=== PATIENT | female | born 1965 | race Caucasian/White ===

== ENCOUNTER → 2023-01-16 | Outpatient (CLI) | payer MEDICARE ==
--- NOTE | 2023-01-16 10:47 | Diagnostic Imaging Report ---
CLINICAL INDICATION: Patient with chronic low back pain. EXAM: MRI of the lumbar spine without contrast. Sequences include sagittal T2, sagittal T1, sagittal T2 fat-sat, and axial T2. COMPARISON: Outside MRI of the lumbar spine without contrast dated 05/25/2017 from [facility]. Images are loaded onto the PACS system. FINDINGS: There is no acute lumbar spine fracture or dislocation. There is a small intraosseous hemangioma with focal fatty infiltration involving the L1 vertebra. There are chronic Schmorl's node involving the upper lumbar spine and thoracolumbar region. The visualized portions of the distal thoracic spinal cord, conus medullaris, and cauda equina nerve roots are unremarkable. The conus medullaris tip is seen at the lower L1 vertebral body level. L1-L2: Unremarkable. L2-L3: Unremarkable. L3-L4: There is subtle grade 1 retrolisthesis of L3 on L4 which slightly progressed. There is mild bilateral facet arthropathy which is slightly progressed. There is no pars defect. There is no significant central canal or neural foramen narrowing. L4-L5: There is interval progression of diffuse disk bulge with a superimposed small right paracentral disk bulge. There is now moderate loss of disk space height. There is moderate bilateral facet arthropathy which is minimally progressed. There is minimal central canal narrowing. There is mild right neural foramen narrowing and no significant left neural foramen narrowing. L5-S1: There is interval development of a subtle posterior disk bulge with annular tear. There is mild bilateral facet arthropathy. There is no significant central canal or neural foramen narrowing. IMPRESSION: 1: There is no acute lumbar spine fracture. 2: There is slight progression of lumbar spine with degenerative disease which is described above. Dictated by: Dictated on workstation # [id number]
== END ==
LOC: RAD 09:25
PROVIDERS: ATTEND Family Medicine
DX: M47.816 Spondylosis without myelopathy or radiculopathy, lumbar region (principal); M43.16 Spondylolisthesis, lumbar region; M51.26 Other intervertebral disc displacement, lumbar region; M48.061 Spinal stenosis, lumbar region without neurogenic claudication; M47.817 Spondylosis without myelopathy or radiculopathy, lumbosacral region; M51.37 Other intervertebral disc degeneration, lumbosacral region
CPT/HCPCS: 72148

== ENCOUNTER → 2023-01-31 | Outpatient (CLI) | payer MEDICARE ==
--- NOTE | 2023-01-31 17:10 | Diagnostic Imaging Report ---
INDICATION: Screening bone density scan COMPARISON: None available FINDINGS: AP Spine L1-L4: [BMD (g/cm2): 1.189] [T-Score: -0.1] [Z-Score: 1.2] [BMD Previous: NA] [BMD % Change: NA] LT Hip Neck: [BMD (g/cm2): 0.802] [T-Score: -1.7] [Z-Score: -0.4] LT Hip Total: [BMD (g/cm2):0.866] [T-Score:-1.1] [Z-Score: 0.1] [BMD Previous: NA] [BMD % Change: NA] RT Hip Neck: [BMD (g/cm2):0.737] [T-Score:-2.2] [Z-Score:-0.9] RT Hip Total: [BMD (g/cm2):0.853] [T-score:-1.2] [Z-Score:-0.2] [BMD Previous:NA] [BMD % Change:NA] *Indicates significant change from prior examination based on 95% confidence level. World Health Organization criteria for BMD interpretation classify patients as Normal (T-score at or above -1.0), Osteopenic (T-score between -1.0 and -2.5) or Osteoporotic (T-score at or below -2.5). LIMITATIONS AND MODIFICATION: None. FRACTURE RISK (FRAX SCORE): The ten year probability of (%): Major Osteoporotic Fracture: [NA] Hip Fracture: [NA] IMPRESSION: 1. Osteopenia (Low bone mass). 2. Baseline examination. 3. See below National Osteoporosis Foundation guidelines on when to potentially initiate pharmacologic therapy. Based on the National Osteoporosis Foundation Guidelines, pharmacologic treatment should be initiated in any of the following, unless clinical conditions suggest otherwise: * Any patient with prior fragility fracture of the hip or vertebrae. A spine fracture indicates 5X risk for subsequent spine fracture and 2X risk for subsequent hip fracture. * Osteoporosis (T-score <-2.5). * Postmenopausal women and men age 50 and older with low bone mass/osteopenia (T-score between -1.0 and -2.5) by DXA and 10-year major osteoporotic fracture greater than 20% or a 10-year probability of hip fracture greater than 3%. These fracture risks are supplied above in the FRAX score, if applicable. * Clinician judgement and/or patient preferences may indicate treatment for people with 10-year fracture probabilities above or below these levels. Dictated by: Dictated on workstation # [id number]
== END ==
LOC: RAD 08:19
PROVIDERS: ATTEND Nurse Practitioner Family
DX: M85.80 Other specified disorders of bone density and structure, unspecified site (principal); Z78.0 Asymptomatic menopausal state
CPT/HCPCS: 77080

== ENCOUNTER → 2023-02-01 | Outpatient (CLI) | payer MEDICARE ==
[2023-02-01 06:34] LABS: BASOPHILS # (AUTO) 0.1 10^3/uL (0.0-0.1); BASOPHILS % (AUTO) 2 % (0-10); EOSINOPHILS # (AUTO) 0.1 10^3/uL (0.0-0.3); EOSINOPHILS % (AUTO) 2 % (0-10); HEMATOCRIT 40 % (35-52); HEMOGLOBIN 13.8 g/dL (11.5-16.0); LYMPHOCYTES # (AUTO) 2.5 10^3/uL (1.0-4.0); LYMPHOCYTES % (AUTO) 39 % (12-44); MEAN CORPUSCULAR HEMOGLOBIN 32 pg (25-34); MEAN CORPUSCULAR HGB CONC 35 g/dL (32-36); MEAN CORPUSCULAR VOLUME 92 fL (80-99); MEAN PLATELET VOLUME 12.3 fL (9.0-12.2); MONOCYTES # (AUTO) 0.5 10^3/uL (0.0-1.0); MONOCYTES % (AUTO) 7 % (0-12); NEUTROPHILS # (AUTO) 3.3 10^3/uL (1.8-7.8); NEUTROPHILS % (AUTO) 50 % (42-75); PLATELET COUNT 190 10^3/uL (130-400); WHITE BLOOD COUNT 6.5 10^3/uL (4.3-11.0)
[2023-02-01 06:50] LABS: POTASSIUM 4.1 MMOL/L (3.6-5.0)
[2023-02-01 06:52] LABS: CALCIUM 9.5 MG/DL (8.5-10.1)
[2023-02-01 06:53] LABS: TOTAL PROTEIN 7.1 GM/DL (6.4-8.2)
[2023-02-01 06:55] LABS: BILIRUBIN,TOTAL 0.5 MG/DL (0.1-1.0)
[2023-02-01 06:57] LABS: CREATININE SERUM 0.77 MG/DL (0.60-1.30)
== END ==
LOC: LAB 06:17
PROVIDERS: ATTEND Physician Assistant
DX: Z00.01 Encounter for general adult medical examination with abnormal findings (principal); G35 Multiple sclerosis; E55.9 Vitamin D deficiency, unspecified; F41.1 Generalized anxiety disorder; E53.8 Deficiency of other specified B group vitamins; Z82.3 Family history of stroke; Z82.49 Family history of ischemic heart disease and other diseases of the circulatory system
CPT/HCPCS: 36415; 80053; 80061; 82306; 82607; 84443; 85025

== ENCOUNTER 2023-02-03 09:11 | Outpatient (RCR) | payer MEDICARE | END 2023-02-20 | disposition home or self-care (01) | PROVIDERS: ATTEND Family Medicine | DX: G35 Multiple sclerosis (principal); M54.50 Low back pain, unspecified; M62.81 Muscle weakness (generalized) ==

== ENCOUNTER 2023-03-07 08:59 | Outpatient (RCR) | payer MEDICARE | END 2023-03-23 | disposition home or self-care (01) | PROVIDERS: ATTEND Family Medicine | DX: G35 Multiple sclerosis (principal); M54.50 Low back pain, unspecified; M62.81 Muscle weakness (generalized) ==

== ENCOUNTER → 2023-04-03 | Outpatient (CLI) | payer MEDICARE ==
--- NOTE | 2023-04-04 19:19 | Diagnostic Imaging Report ---
Indication: Routine screening. Comparison is made with prior mammogram 01/03/2022 and 12/23/2020. 2-D and 3-D bilateral screening mammography was performed with CAD. Both breasts are heterogeneously dense, limiting the sensitivity of mammography. No dominant mass or malignant-appearing microcalcifications are seen. Axillae are unremarkable. IMPRESSION: BI-RADS Category 1 No mammographic features suspicious for malignancy are identified. ACR BI-RADS Category 1: Negative. Result letter will be mailed to the patient. Note: At least 10% of breast cancer is not imaged by mammography. Dictated by: Dictated on workstation # [id number]
== END ==
LOC: RAD 09:26
PROVIDERS: ATTEND Physician Assistant
DX: Z12.31 Encounter for screening mammogram for malignant neoplasm of breast (principal)
CPT/HCPCS: 77063; 77067

== ENCOUNTER 2023-04-10 09:17 | Outpatient (RCR) | payer MEDICARE | END 2023-04-10 10:15 | disposition home or self-care (01) | PROVIDERS: ATTEND Family Medicine | DX: G35 Multiple sclerosis (principal); M54.50 Low back pain, unspecified; M62.81 Muscle weakness (generalized) ==

== ENCOUNTER → 2023-06-20 | Outpatient (CLI) | payer MEDICARE ==
--- NOTE | 2023-06-20 10:12 | Diagnostic Imaging Report ---
PROCEDURE: MR imaging of the brain without contrast. TECHNIQUE: Multiplanar, multisequence MR imaging of the brain was performed without contrast. INDICATION: Multiple sclerosis. Comparison: None Findings: Scattered periventricular, subcortical, and pericallosal deep white matter T2/FLAIR hyperintensities, approximately 40-50 in total, consistent with patient history of demyelinating disease. No infratentorial lesions are identified. No evidence of diffusion restriction. No T1 hypointense lesions. No advanced for age brain atrophy. No acute infarct. No acute or chronic hemorrhage. The ventricles are normal in size and configuration without hydrocephalus. The scalp and calvarium are normal. The pituitary and sella are normal. No Chiari malformation. The visualized upper cervical spine is normal. The visualized orbits and globes are normal. Small mucus retention cyst within the left maxillary sinus. The mastoid air cells are clear. Normal flow voids within the vertebral, basilar, and internal carotid arteries indicating patency. IMPRESSION: Scattered periventricular, subcortical, and pericallosal deep white matter T2/FLAIR hyperintensities, approximately 40-50 in total, consistent with patient history of demyelinating disease. No acute infarct, hemorrhage, mass, or hydrocephalus. Dictated by: Dictated on workstation # [id number]
--- NOTE | 2023-06-20 10:16 | Diagnostic Imaging Report ---
PROCEDURE: MR imaging cervical spine without contrast. TECHNIQUE: Multiplanar, multisequence MR imaging of the cervical spine was performed without contrast. INDICATION: MS. FINDINGS: The cervical spine is normally aligned. No acute fracture. Mild multilevel degenerative disc desiccation and disc height loss. No marrow replacing process to suggest malignancy. T2 hyperintense lesion within the right dorsal cord at C2-C3, right dorsal cord at C4-C5. On the limited views of the cranial cavity and brain, the cerebellum and toi have normal morphology and signal characteristics. No Chiari malformation. No soft tissue abnormality. Normal signal voids are present in the vertebral arteries. C2-3: No significant spinal canal stenosis or neural foraminal narrowing. C3-4: No significant spinal canal stenosis or neural foraminal narrowing. C4-5: No significant spinal canal stenosis or neural foraminal narrowing. C5-6: Disc osteophyte complex. Uncovertebral and facet arthropathy. Mild spinal canal narrowing. Mild bilateral neural foraminal narrowing.. C6-7: Disc osteophyte complex. Uncovertebral facet arthropathy. Mild spinal canal narrowing. Mild bilateral neural foraminal narrowing.. C7-T1: No significant spinal canal stenosis or neural foraminal narrowing. IMPRESSION: T2 hyperintense lesions within the cervical spinal cord compatible with history of multiple sclerosis. Mild degenerative changes of the cervical spine. No high-grade spinal canal or neural foraminal stenosis. Dictated by: Dictated on workstation # [id number]
== END ==
LOC: RAD 08:52
PROVIDERS: ATTEND Psychiatry & Neurology Neurology
DX: G35 Multiple sclerosis (principal); M47.812 Spondylosis without myelopathy or radiculopathy, cervical region
CPT/HCPCS: 70551; 72141